=== PATIENT | male | born 1970 | race Caucasian/White ===

== ENCOUNTER → 2016-06-05 | Outpatient (CLI) | payer SELFPAY | LOC: HEDF 03:25 | DX: S81.032A Puncture wound without foreign body, left knee, initial encounter (principal); S91.331A Puncture wound without foreign body, right foot, initial encounter; S91.131A Puncture wound without foreign body of right great toe without damage to nail, initial encounter; Y35.003A Legal intervention involving unspecified firearm discharge, suspect injured, initial encounter | CPT/HCPCS: A0431; A0436 ==